=== PATIENT | female | born 1970 | race Hispanic/Latino ===

== ENCOUNTER 2020-11-30 11:00 | Outpatient (CLI) | payer OTHER | END 2020-11-30 11:01 | disposition home or self-care (01) | LOC: CSHULT 11:00 | PROVIDERS: ATTEND Physician Assistant | DX: R74.8 Abnormal levels of other serum enzymes (principal); Z90.49 Acquired absence of other specified parts of digestive tract | CPT/HCPCS: 93975 ==

== ENCOUNTER 2024-07-28 09:15 | Outpatient (CLI) | payer OTHER | END 2024-07-28 09:16 | disposition home or self-care (01) | LOC: CSHULT 09:15 | PROVIDERS: ATTEND Internal Medicine Gastroenterology | DX: K21.9 Gastro-esophageal reflux disease without esophagitis (principal); R10.9 Unspecified abdominal pain; R14.0 Abdominal distension (gaseous); Z12.11 Encounter for screening for malignant neoplasm of colon | CPT/HCPCS: 76700 ==